=== PATIENT | male | born 1960 | race Two or more races ===

== ENCOUNTER 2016-03-29 14:21 | Emergency (ER) | payer OTHER ==
[2016-03-29 15:40] VITALS: BP 124/92; PULSE 92; RESP 14; TEMP 98.5; O2SAT 93
--- NOTE | 2016-03-29 16:10 | UCPHY ---
H & P Patient Type: New HPI/ROS: CHIEF COMPLAINT: Fall, shoulder pain, knee pain HISTORY OF PRESENT ILLNESS: patient was at work when he was walking on the ice yesterday. He slipped and fell. He is not entirely sure exactly what happened, but he knows he fell on his left side. He struck his left arm. Since then he has had moderate to severe left shoulder pain. Difficulty raising the arm above the shoulder. Does not radiate. It is worse with any palpation or movement. Some improvement at rest. There is also a right knee pain is less severe than the shoulder. No bony tenderness of the knee. No radiating pain from the knee. No head injury or loss of conscious. No neck, chest or back pain. No abdominal pain or injury. No other associated complaints or modifying factors. REVIEW OF SYSTEMS: Ten systems reviewed and are negative unless otherwise noted in the HPI EXAMINATION General Appearance: Alert, no distress Head: normocephalic, atraumatic Eyes: Pupils equal and round, no conjunctival pallor or injection ENT, Mouth: Mucous membranes moist Neck: Normal inspection, supple, non-tender Respiratory: Lungs are clear to auscultation Cardiovascular: Regular rate and rhythm Gastrointestinal: Abdomen is soft and nontender Back: non-tender, no bony abnormalities Neurological: A&O, nonfocal, normal gait Skin: Warm and dry, no rash Extremities: Tenderness to palpation of the left humeral head. There is no crepitus, step-off or apprehension. There is painful abduction and flexion of the shoulder. Positive Yergason's speed. No contralateral tenderness. Range of motion is otherwise intact in the left arm. Neurovascular intact brisk cap refill right knee is tender palpation on the lateral joint line. Range of motion is fully intact without any crepitus or instability. No varus or valgus laxity. negative drawer test. Psychiatric: Mood and affect normal Differential Diagnoses: 1. Contusion 2. sprain 3. fracture MDM: fall with left shoulder and right knee pain. Left shoulder pain is more severe and does have bony tenderness on examination. The right knee is less severe and there is no bony tenderness of concern. X-ray of the left shoulder has been ordered and is pending at this time. There is no other area of concern. 16:32 patient re-evaluated after x-rays returned with no acute finding. Likely left shoulder sprain versus slap injury versus rotator cuff injury. Right knee sprain is mild. No bony abnormality on exam. Discharged home with Flexeril, [id number] Aleve and follow up with worker's Comp for definitive care. Patient is comfortable this plan and will follow up accordingly. He does not feel that he needs any limitations due to his job safely. We discussed that he cannot take the Flexeril within 12 hours of operating any machinery or vehicles. This patient was independently evaluated without the aide of supervising physician. Smoking Status: Never smoked Constitutional: Initial Vital Signs Temperature (C) 98.5 F 03/29/16 15:32 Heart Rate 92 03/29/16 15:32 Respiratory Rate 14 03/29/16 15:32 Blood Pressure 124/92 H 03/29/16 15:32 O2 Sat (%) 93 03/29/16 15:32 O2 Delivery Mode Room Air Allergies/Adverse Reactions: No Known Allergies Allergy (Unverified 03/29/16 15:30) Home Medications: Medication Instructions Recorded Amlodipine Besylate 03/29/16 Cyclobenzaprine [Flexeril 10 MG 10 mg PO TID PRN #15 tab 03/29/16 (*)] Lisinopril 03/29/16 Metformin HCl 03/29/16 Departure - Departure Disposition: Home, Routine, Self-Care Clinical Impression: Left shoulder strain Qualifiers: Encounter type: initial encounter Qualifier Code: (S46.912A) Strain of unspecified muscle, fascia and tendon at shoulder and upper arm level, left arm , initial encounter Trapezius strain Qualifiers: Encounter type: initial encounter Laterality: left Qualifier Code: (S46.812A) Strain of other muscles, fascia and tendons at shoulder and upper arm level, left arm, initial encounter Knee sprain Qualifiers: Encounter type: initial encounter Involved ligament of knee: other ligament Laterality: right Qualifier Code: (S83.8X1A) Sprain of other specified parts of right knee, initial encounter Condition: Good Instructions: Knee Sprain (ED), Shoulder Sprain (ED) Additional Instructions: Follow-up with worker's Comp. Prescriptions as prescribed. Do not take the Flexeril within 12 hours of driving or operating machinery. Stand Alone Forms: Work Comp Follow Up Prescriptions: Cyclobenzaprine [Flexeril 10 MG (*)] 10 mg PO TID PRN #15 tab PRN Reason: Spasms - PQRS PQRS Measurement: Not applicable
--- NOTE | 2016-03-29 16:11 | DX ---
Left Shoulder, Three Views Clinical Indications: Trauma. Findings: The humeral head is normally located in the glenoid fossa. No fracture or dislocation. N o evidence of neoplasm, necrosis, or arthritis. No calcifications of soft tissues. Impression: Normal.
== END 2016-03-29 17:16 | disposition home or self-care (01) ==
LOC: CED 14:21
DX: S46.912A Strain of unspecified muscle, fascia and tendon at shoulder and upper arm level, left arm, initial encounter (principal); S46.812A Strain of other muscles, fascia and tendons at shoulder and upper arm level, left arm, initial encounter; S83.8X1A Sprain of other specified parts of right knee, initial encounter; W00.0XXA Fall on same level due to ice and snow, initial encounter
CPT/HCPCS: 73030-PO; 99203-PO; G0463-PO